=== PATIENT | male | born 1935 | race Caucasian/White ===

== ENCOUNTER 2017-12-31 17:13 | Emergency (ER) | payer MEDICARE, BC ==
[~2017-12-31] VITALS: Ht 170.2 cm; Wt 81.0 kg
[~2017-12-31 17:13] MED LIST: ACAR100T2 PO; ASPI-611 PO; ATOR10TA87 PO; CARV3.122 PO; DEC4T PO; ESOM40CA PO; GLIM4TAB79 PO; GLUC1CAP69 PO; LENA10CA PO; MAGN500C17 PO; METF1000 PO; NITR0.4T51 SL; PIOG15TA8 PO; SACU1TAB7 PO
[2017-12-31 17:57] LABS: BASOPHILS % (AUTO) 0.4 % (0-1); EOSINOPHILS # (AUTO) 0.1 X10'3 (0-0.9); EOSINOPHILS % (AUTO) 3.6 % (0-6); HEMATOCRIT 32.1 % (42.0-52.0); HEMOGLOBIN 10.7 g/dl (14.0-17.9); LYMPHOCYTES # (AUTO) 0.6 X10'3 (1.1-4.8); LYMPHOCYTES % (AUTO) 23.3 % (21-51); MEAN CORPUSCULAR HEMOGLOBIN 31.5 PG (27.0-31.0); MEAN CORPUSCULAR HGB CONC 33.2 % (33.0-36.5); MEAN CORPUSCULAR VOLUME 94.8 FL (78-98); MONOCYTES # (AUTO) 0.3 X10'3 (0-0.9); MONOCYTES % (AUTO) 13.7 % (2-12); NEUTROPHILS # (AUTO) 1.5 X10'3 (1.8-7.7); PLATELET COUNT 144 X10'3 (140-440); RED BLOOD COUNT 3.38 X10'6 (4.70-6.10); RED CELL DISTRIBUTION WIDTH 16.9 % (11.5-14.5); WHITE BLOOD COUNT 2.5 X10'3 (4.5-11.0)
[2017-12-31 18:11] LABS: ALANINE AMINOTRANSFERASE 19 U/L (12-78); ALBUMIN 3.1 G/DL (3.4-5.0); ALBUMIN/GLOBULIN RATIO 0.9 (1.1-1.5); ALKALINE PHOSPHATASE 66 IU/L (46-116); ANION GAP 10 (8-16); ASPARTATE AMINO TRANSFERASE 14 U/L (10-37); BILIRUBIN,TOTAL 0.4 MG/DL (0.1-1.0); BLOOD UREA NITROGEN 26 MG/DL (7-18); BUN/CREATININE RATIO 14.4 (5.4-32.0); CALCIUM 8.1 MG/DL (8.5-10.1); CHLORIDE 105 MMOL/L (99-107); GLUCOSE 126 MG/DL (70-104); POTASSIUM 4.1 MMOL/L (3.5-5.1); SODIUM 141 MMOL/L (135-145); TOTAL CARBON DIOXIDE 26.5 MMOL/L (24-32); TOTAL PROTEIN 6.4 G/DL (6.4-8.2); eGFR 36 ML/MIN
[2017-12-31 18:13] LABS: ANISOCYTOSIS 1+; PLATELET ESTIMATE NORMAL; TOTAL CELLS COUNTED 50
[2017-12-31 18:55] VITALS: BP 126/59
== END 2017-12-31 19:05 | disposition home or self-care (01) ==
LOC: ER 17:14
DX: R00.2 Palpitations (principal); R60.0 Localized edema; Z95.5 Presence of coronary angioplasty implant and graft; Z95.1 Presence of aortocoronary bypass graft; Z95.0 Presence of cardiac pacemaker; Z79.899 Other long term (current) drug therapy; Z79.82 Long term (current) use of aspirin
CPT/HCPCS: 36415; 71045; 80053; 83735; 84484; 85025; 93005; 99285

== ENCOUNTER 2018-01-30 16:05 | Inpatient (IN) | payer MEDICARE, BC ==
[~2018-01-30] VITALS: Ht 170.2 cm; Wt 75.2 kg
[2018-01-30] MEDS ORDERED: normal saline 1000ML IV soln IV ONE (16:50)
[2018-01-30] MEDS ORDERED: levoFLOXACIN-Levaquin 750MG/D5 150 ML IV ONE (17:30)
[2018-01-30 17:39] LABS: BASOPHILS % (AUTO) 0.1 % (0-1); EOSINOPHILS % (AUTO) 1.1 % (0-6); HEMATOCRIT 33.6 % (42.0-52.0); HEMOGLOBIN 11.1 g/dl (14.0-17.9); LYMPHOCYTES # (AUTO) 0.1 X10'3 (1.1-4.8); LYMPHOCYTES % (AUTO) 3.9 % (21-51); MEAN CORPUSCULAR HEMOGLOBIN 31.4 PG (27.0-31.0); MEAN CORPUSCULAR HGB CONC 33.1 % (33.0-36.5); MEAN CORPUSCULAR VOLUME 94.7 FL (78-98); MEAN PLATELET VOLUME 9.5 FL (7.4-10.4); MONOCYTES # (AUTO) 0.1 X10'3 (0-0.9); MONOCYTES % (AUTO) 2.1 % (2-12); NEUTROPHILS # (AUTO) 3.5 X10'3 (1.8-7.7); NEUTROPHILS % (AUTO) 92.8 % (42-75); PLATELET COUNT 135 X10'3 (140-440); RED BLOOD COUNT 3.54 X10'6 (4.70-6.10); RED CELL DISTRIBUTION WIDTH 16.5 % (11.5-14.5); WHITE BLOOD COUNT 3.7 X10'3 (4.5-11.0)
[2018-01-30 18:07] LABS: ALANINE AMINOTRANSFERASE 21 U/L (12-78); ALBUMIN 3.3 G/DL (3.4-5.0); ALKALINE PHOSPHATASE 66 IU/L (46-116); ANION GAP 10 (8-16); ASPARTATE AMINO TRANSFERASE 18 U/L (10-37); BILIRUBIN,TOTAL 1.1 MG/DL (0.1-1.0); BLOOD UREA NITROGEN 29 MG/DL (7-18); BUN/CREATININE RATIO 17.3 (5.4-32.0); CALCIUM 8.7 MG/DL (8.5-10.1); CHLORIDE 103 MMOL/L (99-107); CREATININE 1.68 MG/DL (0.60-1.10); GLUCOSE 150 MG/DL (70-104); INR 1.2 INR; MAGNESIUM 2.2 MG/DL (1.5-2.4); PARTIAL THROMBOPLASTIN TIME 23 SECONDS (22-32); PROTHROMBIN TIME 11.6 SECONDS (9.0-12.0); SODIUM 140 MMOL/L (135-145); TOTAL CARBON DIOXIDE 27.5 MMOL/L (24-32); TOTAL PROTEIN 6.7 G/DL (6.4-8.2); eGFR 39 ML/MIN
[2018-01-30 18:23] LABS: CLARITY,URINE SLIGHTLY CLOUDY (Clear); GLUCOSE, URINE NEGATIVE (Neg); KETONES,URINE 15 mg/dl (Neg); LEUKOCYTE ESTERASE ,URINE NEGATIVE (Neg); NITRITES, URINE NEGATIVE (Neg); OCCULT BLOOD,URINE NEGATIVE (Neg); PROTEIN,URINE 30 mg/dl (Neg); UROBILINOGEN,URINE 0.2 E.U/dL (0.2-1.0)
[2018-01-30 18:34] LABS: UA COLLECTION TYPE CLN CATCH MIDSTREAM
[2018-01-30 18:35] LABS: COLOR,URINE DARK YELLOW (Yellow)
[2018-01-30 18:36] LABS: BACTERIA,URINE NONE SEEN /HPF (Neg); RBC,URINE 0-2 /HPF (0-2); SQUAMOUS EPITHELIAL CELL,UR NONE SEEN /LPF (FEW); WBC,URINE 0-4 /HPF (0-4)
[2018-01-30 18:37] LABS: HYALINE CASTS 0-3 /LPF (NEGATIVE)
[2018-01-30] MEDS ORDERED: METF500T PO (20:33)
[2018-01-30] MEDS ORDERED: ZINC50TA60 PO (20:33)
[2018-01-30] MEDS ORDERED: ESOM40CA PO (20:33)
[2018-01-30] MEDS ORDERED: LENA5CAP PO (20:33)
[2018-01-30] MEDS ORDERED: SACU1TAB7 PO (20:33)
[2018-01-30] MEDS ORDERED: ATOR10TA87 PO (20:33)
[2018-01-30] MEDS ORDERED: ACAR100T2 PO (20:33)
[2018-01-30] MEDS ORDERED: GLIM4TAB79 PO (20:33)
[2018-01-30] MEDS ORDERED: PIOG15TA8 PO (20:33)
[2018-01-30] MEDS ORDERED: FURO-150 PO (20:33)
[2018-01-30] MEDS ORDERED: BACL10TA PO (20:33)
[2018-01-30] MEDS ORDERED: temazepam 15mg capsule PO PRN (21:00)
[2018-01-30] MEDS ORDERED: mag hydrox/Alum hydrox/simeth 30ml oral suspension PO PRN (21:25)
[2018-01-30] MEDS ORDERED: metoclopramide 5 mg/ml inj IV PRN (21:25)
[2018-01-30] MEDS ORDERED: HYDROmorphone 1 mg/ml syringe IV PRN (21:25)
[2018-01-30] MEDS ORDERED: acetaminophen 325mg tablet PO PRN ×2 (21:25)
[2018-01-30] MEDS ORDERED: magnesium hydroxide 30ml (MOM) UD suspension PO PRN (21:25)
[2018-01-30] MEDS ORDERED: morphine 2 MG/ML inj. syringe IV PRN (21:25)
[2018-01-30] MEDS ORDERED: ondansetron/PF 4mg/2ml inj IV PRN (21:25)
[2018-01-30] MEDS ORDERED: diphenhydrAMINE 25mg capsule PO PRN (21:25)
[2018-01-30] MEDS ORDERED: diphenhydrAMINE 50 mg/ml inj IV PRN (21:25)
[2018-01-30] MEDS ORDERED: bisacodyl 10mg suppository rectal RC PRN (21:25)
[2018-01-30] MEDS ORDERED: acetaminophen 650mg rectal suppository RC PRN (21:25)
[2018-01-30] MEDS ORDERED: HYDROcodone/acetaminophen 5mg/325mg tablet PO PRN (21:25)
[2018-01-30] MEDS ORDERED: MESSAGE TO PHARMACY PO ONE (21:30)
[2018-01-30] MEDS ORDERED: insulin Lispro (HumaLOG) vial - multi-dose SQ SCH (21:30)
[2018-01-30] MEDS ORDERED: glucagon, human recombinant 1mg kit SUBCUT PRN (21:30)
[2018-01-30] MEDS ORDERED: dextrose 50%-water 50ml dispensing syringe IV PRN ×2 (21:30)
[2018-01-30] MEDS ORDERED: dextrose ORAL solution 15 GM/59 ML bottle PO PRN ×2 (21:30)
[2018-01-30 22:03] LABS: HEMOGLOBIN A1C 6.5 % (4.5-6.2)
[2018-01-30 22:15] VITALS: BP 104/52
[2018-01-30 22:15] LABS: MAGNESIUM 2.2 MG/DL (1.5-2.4); PHOSPHORUS 1.9 MG/DL (2.3-4.5)
[2018-01-30] MEDS: normal saline 1000ml 1,000 ML IV SCH (23:49)
[2018-01-31] MEDS ORDERED: normal saline 500ml IV soln 500 ML IV ONE (00:35)
[2018-01-31 06:00] VITALS: BP 103/50
[2018-01-31 06:06] LABS: BASOPHILS % (AUTO) 0.3 % (0-1); EOSINOPHILS # (AUTO) 0.1 X10'3 (0-0.9); HEMOGLOBIN 9.2 g/dl (14.0-17.9); LYMPHOCYTES # (AUTO) 0.4 X10'3 (1.1-4.8); LYMPHOCYTES % (AUTO) 9.9 % (21-51); MEAN CORPUSCULAR HEMOGLOBIN 31.1 PG (27.0-31.0); MEAN CORPUSCULAR HGB CONC 32.7 % (33.0-36.5); MEAN CORPUSCULAR VOLUME 95.1 FL (78-98); MEAN PLATELET VOLUME 9.5 FL (7.4-10.4); MONOCYTES # (AUTO) 0.2 X10'3 (0-0.9); MONOCYTES % (AUTO) 5.8 % (2-12); NEUTROPHILS # (AUTO) 2.9 X10'3 (1.8-7.7); PLATELET COUNT 104 X10'3 (140-440); RED BLOOD COUNT 2.95 X10'6 (4.70-6.10); RED CELL DISTRIBUTION WIDTH 16.7 % (11.5-14.5); WHITE BLOOD COUNT 3.6 X10'3 (4.5-11.0)
[2018-01-31 06:14] LABS: ALANINE AMINOTRANSFERASE 19 U/L (12-78); ALBUMIN 2.6 G/DL (3.4-5.0); ALBUMIN/GLOBULIN RATIO 0.9 (1.1-1.5); ALKALINE PHOSPHATASE 50 IU/L (46-116); ANION GAP 9 (8-16); ASPARTATE AMINO TRANSFERASE 17 U/L (10-37); BILIRUBIN,TOTAL 0.6 MG/DL (0.1-1.0); BLOOD UREA NITROGEN 31 MG/DL (7-18); BUN/CREATININE RATIO 17.9 (5.4-32.0); CALCIUM 7.8 MG/DL (8.5-10.1); CHLORIDE 107 MMOL/L (99-107); CREATININE 1.73 MG/DL (0.60-1.10); GLUCOSE 98 MG/DL (70-104); POTASSIUM 4.1 MMOL/L (3.5-5.1); SODIUM 141 MMOL/L (135-145); TOTAL CARBON DIOXIDE 25.3 MMOL/L (24-32); TOTAL PROTEIN 5.6 G/DL (6.4-8.2); eGFR 38 ML/MIN
[2018-01-31] MEDS: sacubitril/valsartan 49mg-51mg tablet PO SCH ×2 (08:00→22:16)
[2018-01-31] MEDS ORDERED: azithromycin/NS 500mg/250ml 250 ML IV SCH (08:00)
[2018-01-31] MEDS ORDERED: CefTRIAXone/D5W-Rocephin 1gm 50 ML IV SCH (08:00)
[2018-01-31] MEDS: heparin, porcine 5000 units/ml vial SQ SCH ×2 (08:00→20:00)
[2018-01-31] MEDS: atorvastatin 10mg tablet PO SCH (08:00)
[2018-01-31] MEDS ORDERED: docusate sod 100mg capsule PO SCH (08:00)
[2018-01-31] MEDS: normal saline 1000ml 1,000 ML IV SCH ×2 (08:12→12:25)
[2018-01-31] MEDS: pantoprazole 40mg Tablet.DR PO SCH ×2 (08:12→18:00)
[2018-01-31] MEDS: baclofen 10mg tablet PO SCH ×2 (08:13→21:13)
[2018-01-31] MEDS: carVEDilol 3.125mg tablet PO SCH ×2 (08:13→21:13)
[2018-01-31] MEDS: aspirin 81mg tab.chew PO SCH (08:13)
[2018-01-31] MEDS: LENALIDOMIDE 5 MG PO SCH (09:23)
[2018-01-31 10:00] VITALS: BP 110/58
[2018-01-31] MEDS: levoFLOXACIN-Levaquin 250mg/D5 50 ML IV SCH (15:38)
[2018-01-31] MEDS: vancomycin/NS 1 GM ADD-VANTAGE 250 ML IV SCH (16:55)
[2018-01-31 19:00] VITALS: BP 103/49
[2018-01-31 22:00] VITALS: BP 116/55
[2018-02-01] MEDS: normal saline 1000ml 1,000 ML IV SCH (02:43)
[2018-02-01 06:00] VITALS: BP 135/71
[2018-02-01 07:11] LABS: BASOPHILS % (AUTO) 0.3 % (0-1); EOSINOPHILS # (AUTO) 0.1 X10'3 (0-0.9); EOSINOPHILS % (AUTO) 2.1 % (0-6); HEMATOCRIT 30.5 % (42.0-52.0); HEMOGLOBIN 10.2 g/dl (14.0-17.9); LYMPHOCYTES # (AUTO) 0.5 X10'3 (1.1-4.8); LYMPHOCYTES % (AUTO) 10.9 % (21-51); MEAN CORPUSCULAR HEMOGLOBIN 31.7 PG (27.0-31.0); MEAN CORPUSCULAR HGB CONC 33.3 % (33.0-36.5); MEAN CORPUSCULAR VOLUME 95.2 FL (78-98); MEAN PLATELET VOLUME 9.5 FL (7.4-10.4); MONOCYTES # (AUTO) 0.2 X10'3 (0-0.9); MONOCYTES % (AUTO) 4.2 % (2-12); NEUTROPHILS # (AUTO) 3.6 X10'3 (1.8-7.7); NEUTROPHILS % (AUTO) 82.5 % (42-75); PLATELET COUNT 120 X10'3 (140-440); RED BLOOD COUNT 3.21 X10'6 (4.70-6.10); WHITE BLOOD COUNT 4.3 X10'3 (4.5-11.0)
[2018-02-01] MEDS: atorvastatin 10mg tablet PO SCH (07:18)
[2018-02-01] MEDS: baclofen 10mg tablet PO SCH ×2 (07:18→19:43)
[2018-02-01] MEDS: carVEDilol 3.125mg tablet PO SCH ×2 (07:18→19:43)
[2018-02-01] MEDS: aspirin 81mg tab.chew PO SCH (07:19)
[2018-02-01] MEDS: pantoprazole 40mg Tablet.DR PO SCH ×2 (07:19→17:47)
[2018-02-01] MEDS: LENALIDOMIDE 5 MG PO SCH (07:20)
[2018-02-01] MEDS: sacubitril/valsartan 49mg-51mg tablet PO SCH ×2 (07:20→19:44)
[2018-02-01] MEDS: heparin, porcine 5000 units/ml vial SQ SCH ×2 (07:21→19:46)
[2018-02-01 07:55] LABS: ALANINE AMINOTRANSFERASE 20 U/L (12-78); ALBUMIN 2.7 G/DL (3.4-5.0); ALBUMIN/GLOBULIN RATIO 0.8 (1.1-1.5); ALKALINE PHOSPHATASE 55 IU/L (46-116); ASPARTATE AMINO TRANSFERASE 16 U/L (10-37); BILIRUBIN,TOTAL 0.7 MG/DL (0.1-1.0); BLOOD UREA NITROGEN 27 MG/DL (7-18); BUN/CREATININE RATIO 17.4 (5.4-32.0); CALCIUM 8.1 MG/DL (8.5-10.1); CREATININE 1.55 MG/DL (0.60-1.10); GLUCOSE 115 MG/DL (70-104); TOTAL CARBON DIOXIDE 24.1 MMOL/L (24-32); TOTAL PROTEIN 6.1 G/DL (6.4-8.2); eGFR 43 ML/MIN
[2018-02-01] MEDS ORDERED: CefTRIAXone/D5W-Rocephin 1gm 50 ML IV SCH (08:00)
[2018-02-01] MEDS: levoFLOXACIN-Levaquin 250mg/D5 50 ML IV SCH (09:22)
[2018-02-01 09:57] LABS: ANION GAP 14 (8-16); CHLORIDE 106 MMOL/L (99-107); POTASSIUM 4.1 MMOL/L (3.5-5.1); SODIUM 140 MMOL/L (135-145)
[2018-02-01 10:00] VITALS: BP 123/55
[2018-02-01] MEDS ORDERED: furosemide 40mg/4ml inj IV ONE (11:00)
[2018-02-01] MEDS: vancomycin/NS 1 GM ADD-VANTAGE 250 ML IV SCH (15:58)
[2018-02-01 18:00] VITALS: BP 127/69
[2018-02-01] MEDS: furosemide 40mg/4ml inj IV SCH (19:48)
[2018-02-01] MEDS ORDERED: heparin, porcine 5000 units/ml vial SQ SCH (20:20)
[2018-02-01] MEDS: piperacillin/tazo 3.375gm/50ml 50 ML IV SCH (21:13)
[2018-02-01 22:00] VITALS: BP 105/52
[2018-02-02] MEDS: piperacillin/tazo 3.375gm/50ml 50 ML IV SCH ×4 (02:21→20:03)
[2018-02-02 06:00] VITALS: BP 105/45
[2018-02-02 06:17] LABS: BASOPHILS % (AUTO) 0.3 % (0-1); EOSINOPHILS # (AUTO) 0.1 X10'3 (0-0.9); EOSINOPHILS % (AUTO) 4.7 % (0-6); HEMATOCRIT 30.7 % (42.0-52.0); HEMOGLOBIN 10.2 g/dl (14.0-17.9); LYMPHOCYTES # (AUTO) 0.6 X10'3 (1.1-4.8); LYMPHOCYTES % (AUTO) 17.6 % (21-51); MEAN CORPUSCULAR HEMOGLOBIN 31.4 PG (27.0-31.0); MEAN CORPUSCULAR HGB CONC 33.2 % (33.0-36.5); MEAN CORPUSCULAR VOLUME 94.7 FL (78-98); MEAN PLATELET VOLUME 9.9 FL (7.4-10.4); MONOCYTES # (AUTO) 0.2 X10'3 (0-0.9); MONOCYTES % (AUTO) 6.3 % (2-12); NEUTROPHILS # (AUTO) 2.2 X10'3 (1.8-7.7); NEUTROPHILS % (AUTO) 71.1 % (42-75); PLATELET COUNT 119 X10'3 (140-440); RED BLOOD COUNT 3.24 X10'6 (4.70-6.10); RED CELL DISTRIBUTION WIDTH 16.9 % (11.5-14.5); WHITE BLOOD COUNT 3.1 X10'3 (4.5-11.0)
[2018-02-02 07:14] LABS: ALANINE AMINOTRANSFERASE 18 U/L (12-78); ALBUMIN 2.7 G/DL (3.4-5.0); ALBUMIN/GLOBULIN RATIO 0.8 (1.1-1.5); ALKALINE PHOSPHATASE 65 IU/L (46-116); ANION GAP 12 (8-16); ASPARTATE AMINO TRANSFERASE 12 U/L (10-37); BLOOD UREA NITROGEN 23 MG/DL (7-18); CALCIUM 8.1 MG/DL (8.5-10.1); CHLORIDE 104 MMOL/L (99-107); CREATININE 1.77 MG/DL (0.60-1.10); GLUCOSE 115 MG/DL (70-104); MAGNESIUM 1.6 MG/DL (1.5-2.4); PHOSPHORUS 4.6 MG/DL (2.3-4.5); SODIUM 143 MMOL/L (135-145); TOTAL CARBON DIOXIDE 27.1 MMOL/L (24-32); TOTAL PROTEIN 6.1 G/DL (6.4-8.2); eGFR 37 ML/MIN
[2018-02-02] MEDS: furosemide 40mg/4ml inj IV SCH (07:24)
[2018-02-02] MEDS: heparin, porcine 5000 units/ml vial SQ SCH ×2 (07:25→20:05)
[2018-02-02] MEDS: levoFLOXACIN-Levaquin 250mg/D5 50 ML IV SCH (07:25)
[2018-02-02] MEDS: aspirin 81mg tab.chew PO SCH (07:25)
[2018-02-02] MEDS: atorvastatin 10mg tablet PO SCH (07:25)
[2018-02-02] MEDS: LENALIDOMIDE 5 MG PO SCH (07:25)
[2018-02-02] MEDS: pantoprazole 40mg Tablet.DR PO SCH ×2 (07:26→17:39)
[2018-02-02] MEDS: sacubitril/valsartan 49mg-51mg tablet PO SCH ×2 (07:26→20:03)
[2018-02-02] MEDS: carVEDilol 3.125mg tablet PO SCH ×2 (07:26→20:03)
[2018-02-02] MEDS: baclofen 10mg tablet PO SCH ×2 (07:26→20:03)
[2018-02-02 07:28] LABS: POTASSIUM 2.9 MMOL/L (3.5-5.1)
[2018-02-02] MEDS ORDERED: magnesium 4gm in 100ml NS 100 ML IV PRN (07:50)
[2018-02-02] MEDS ORDERED: magnesium 1gm/100ml D5W IVPB 100 ML IV PRN (07:50)
[2018-02-02] MEDS ORDERED: magnesium Cl slow-release 64mg tablet PO PRN (07:50)
[2018-02-02] MEDS ORDERED: potassium Cl 40MEQ/NS 500ml 500 ML IV PRN (07:50)
[2018-02-02] MEDS ORDERED: potassium Cl 20 mEq SR tablet PO PRN (07:50)
[2018-02-02] MEDS: potassium Cl 40MEQ/NS 500ml 500 ML IV PRN ×2 (09:52→14:29)
[2018-02-02 10:00] VITALS: BP 99/47
[2018-02-02] MEDS: vancomycin/NS 1 GM ADD-VANTAGE 250 ML IV SCH (16:26)
[2018-02-02 18:00] VITALS: BP 96/63
[2018-02-02] MEDS: potassium Cl 20 mEq SR tablet PO PRN (21:33)
[2018-02-02 22:00] VITALS: BP 104/58
[2018-02-03] MEDS: potassium Cl 20 mEq SR tablet PO PRN (01:34)
[2018-02-03] MEDS: piperacillin/tazo 3.375gm/50ml 50 ML IV SCH ×2 (01:34→09:18)
[2018-02-03 06:00] VITALS: BP 123/70
[2018-02-03 06:56] LABS: BASOPHILS % (AUTO) 0.5 % (0-1); EOSINOPHILS # (AUTO) 0.2 X10'3 (0-0.9); EOSINOPHILS % (AUTO) 5.5 % (0-6); HEMATOCRIT 32.2 % (42.0-52.0); HEMOGLOBIN 10.7 g/dl (14.0-17.9); LYMPHOCYTES # (AUTO) 0.5 X10'3 (1.1-4.8); LYMPHOCYTES % (AUTO) 16.3 % (21-51); MEAN CORPUSCULAR HEMOGLOBIN 31.1 PG (27.0-31.0); MEAN CORPUSCULAR HGB CONC 33.1 % (33.0-36.5); MEAN CORPUSCULAR VOLUME 93.9 FL (78-98); MEAN PLATELET VOLUME 9.9 FL (7.4-10.4); MONOCYTES # (AUTO) 0.3 X10'3 (0-0.9); MONOCYTES % (AUTO) 8.7 % (2-12); NEUTROPHILS # (AUTO) 2.2 X10'3 (1.8-7.7); PLATELET COUNT 135 X10'3 (140-440); RED BLOOD COUNT 3.43 X10'6 (4.70-6.10); RED CELL DISTRIBUTION WIDTH 16.8 % (11.5-14.5); WHITE BLOOD COUNT 3.2 X10'3 (4.5-11.0)
[2018-02-03 07:41] LABS: ALANINE AMINOTRANSFERASE 19 U/L (12-78); ALBUMIN 2.8 G/DL (3.4-5.0); ALBUMIN/GLOBULIN RATIO 0.8 (1.1-1.5); ALKALINE PHOSPHATASE 60 IU/L (46-116); ANION GAP 11 (8-16); ASPARTATE AMINO TRANSFERASE 12 U/L (10-37); BLOOD UREA NITROGEN 18 MG/DL (7-18); BUN/CREATININE RATIO 9.3 (5.4-32.0); CALCIUM 8.1 MG/DL (8.5-10.1); CHLORIDE 106 MMOL/L (99-107); CREATININE 1.94 MG/DL (0.60-1.10); GLUCOSE 125 MG/DL (70-104); MAGNESIUM 1.5 MG/DL (1.5-2.4); POTASSIUM 3.6 MMOL/L (3.5-5.1); SODIUM 144 MMOL/L (135-145); TOTAL CARBON DIOXIDE 27.2 MMOL/L (24-32); TOTAL PROTEIN 6.4 G/DL (6.4-8.2); eGFR 33 ML/MIN
[2018-02-03] MEDS ORDERED: furosemide 20MG tablet PO SCH (08:00)
[2018-02-03] MEDS: pantoprazole 40mg Tablet.DR PO SCH (08:15)
[2018-02-03] MEDS: carVEDilol 3.125mg tablet PO SCH (08:16)
[2018-02-03] MEDS: levoFLOXACIN-Levaquin 250mg/D5 50 ML IV SCH (08:16)
[2018-02-03] MEDS: LENALIDOMIDE 5 MG PO SCH (08:17)
[2018-02-03] MEDS: baclofen 10mg tablet PO SCH (08:17)
[2018-02-03] MEDS: atorvastatin 10mg tablet PO SCH (08:17)
[2018-02-03] MEDS: sacubitril/valsartan 49mg-51mg tablet PO SCH (08:18)
[2018-02-03] MEDS: aspirin 81mg tab.chew PO SCH (08:20)
[2018-02-03] MEDS: heparin, porcine 5000 units/ml vial SQ SCH (08:20)
[2018-02-03 10:00] VITALS: BP 113/72
[2018-02-03] MEDS ORDERED: LEVO500T89 PO (10:22)
[2018-02-03] MEDS ORDERED: AMOX-419 PO (10:22)
[2018-02-03] MEDS ORDERED: VANCOMYCIN LEVEL IV NR (15:30)
== END 2018-02-03 12:50 | disposition home health service (06) | DRG 871 ==
LOC: ER 16:06 → ED HOLD 21:25 → EDBEDREQ 21:36 → ORTHO 4S 21:56
PROVIDERS: ADMIT Family Medicine; ATTEND Family Medicine
DX: A41.9 Sepsis, unspecified organism (principal); J69.0 Pneumonitis due to inhalation of food and vomit; N17.9 Acute kidney failure, unspecified; D61.818 Other pancytopenia; I42.9 Cardiomyopathy, unspecified; C90.00 Multiple myeloma not having achieved remission; E87.6 Hypokalemia; I50.9 Heart failure, unspecified; E86.1 Hypovolemia; I25.10 Atherosclerotic heart disease of native coronary artery without angina pectoris; E11.22 Type 2 diabetes mellitus with diabetic chronic kidney disease; N18.9 Chronic kidney disease, unspecified; E11.65 Type 2 diabetes mellitus with hyperglycemia; R09.02 Hypoxemia; Z66 Do not resuscitate; Z95.5 Presence of coronary angioplasty implant and graft; Z79.84 Long term (current) use of oral hypoglycemic drugs; Z79.899 Other long term (current) drug therapy; Z79.82 Long term (current) use of aspirin
CPT/HCPCS: 36415; 71045; 80053; 81001; 82948; 83036; 83605; 83735; 83880; 84100; 84132; 84145; 85025; 85610; 85730; 87040; 87070; 87502; 87503; 93005; 93306; 94760; 96365; 97116; 97161; 99285; G0378; J0456; J0696; J1644; J1940; J1956; J2543; J3370; J3480; J7030

== ENCOUNTER 2018-05-10 00:17 | Inpatient (IN) | payer MEDICARE, BC | END 2018-05-11 15:50 | disposition home or self-care (01) | LOC: ER 00:17 → ED HOLD 02:12 → PCU 3S 07:20 | DX: I50.23 Acute on chronic systolic (congestive) heart failure (principal); J96.01 Acute respiratory failure with hypoxia; C90.00 Multiple myeloma not having achieved remission; E11.8 Type 2 diabetes mellitus with unspecified complications ==

== ENCOUNTER 2018-06-22 08:55 | Emergency (ER) | payer MEDICARE, BC ==
[~2018-06-22] VITALS: Ht 170.2 cm; Wt 60.0 kg
[~2018-06-22 08:55] MED LIST changes: +ALBU8.5H8 INH; +BACL10TA PO; -DEC4T PO; +FURO-150 PO; -GLUC1CAP69 PO; -LENA10CA PO; +LENA5CAP PO; -MAGN500C17 PO; -METF1000 PO; +METF500T PO; +ROBDML PO; +ZINC50TA60 PO
[2018-06-22] MEDS ORDERED: normal saline 1000ML IV soln IVB ONE (09:25)
[2018-06-22 09:29] LABS: BASOPHILS # (AUTO) 0.1 X10'3 (0-0.2); BASOPHILS % (AUTO) 2.7 % (0-1); EOSINOPHILS # (AUTO) 0.1 X10'3 (0-0.9); EOSINOPHILS % (AUTO) 1.4 % (0-6); HEMATOCRIT 40.7 % (42.0-52.0); HEMOGLOBIN 13.4 g/dl (14.0-17.9); LYMPHOCYTES # (AUTO) 0.4 X10'3 (1.1-4.8); LYMPHOCYTES % (AUTO) 11.1 % (21-51); MEAN CORPUSCULAR HEMOGLOBIN 30.9 PG (27.0-31.0); MEAN CORPUSCULAR HGB CONC 32.9 g/dL (33.0-36.5); MEAN CORPUSCULAR VOLUME 93.8 FL (78-98); MEAN PLATELET VOLUME 9.9 FL (7.4-10.4); MONOCYTES # (AUTO) 0.2 X10'3 (0-0.9); NEUTROPHILS # (AUTO) 2.9 X10'3 (1.8-7.7); NEUTROPHILS % (AUTO) 79.8 % (42-75); PLATELET COUNT 129 X10'3 (140-440); RED BLOOD COUNT 4.34 X10'6 (4.70-6.10); RED CELL DISTRIBUTION WIDTH 19.1 % (11.5-14.5); WHITE BLOOD COUNT 3.7 X10'3 (4.5-11.0)
[2018-06-22 09:34] LABS: INR 1.1 INR; PROTHROMBIN TIME 11.5 SECONDS (9.0-12.0)
[2018-06-22 09:37] LABS: ALANINE AMINOTRANSFERASE 53 U/L (12-78); ALBUMIN/GLOBULIN RATIO 1.1 (1.1-1.5); ALKALINE PHOSPHATASE 113 IU/L (46-116); ANION GAP 8 (8-16); ASPARTATE AMINO TRANSFERASE 35 U/L (10-37); BILIRUBIN,TOTAL 1.6 MG/DL (0.1-1.0); BLOOD UREA NITROGEN 39 MG/DL (7-18); BUN/CREATININE RATIO 24.1 (5.4-32.0); CALCIUM 9.3 MG/DL (8.5-10.1); CHLORIDE 102 MMOL/L (99-107); CREATININE 1.62 MG/DL (0.60-1.10); GLUCOSE 142 MG/DL (70-104); POTASSIUM 4.3 MMOL/L (3.5-5.1); SODIUM 139 MMOL/L (135-145); TOTAL CARBON DIOXIDE 28.8 MMOL/L (24-32); TOTAL PROTEIN 7.7 G/DL (6.4-8.2); eGFR 41 ML/MIN
[2018-06-22 09:50] LABS: CLARITY,URINE CLEAR (Clear); COLOR,URINE YELLOW (Yellow); GLUCOSE, URINE NEGATIVE (Neg); KETONES,URINE 15 mg/dl (Neg); LEUKOCYTE ESTERASE ,URINE NEGATIVE (Neg); NITRITES, URINE NEGATIVE (Neg); OCCULT BLOOD,URINE MODERATE (Neg); PROTEIN,URINE 100 mg/dl (Neg); UA COLLECTION TYPE CLN CATCH MIDSTREAM; UROBILINOGEN,URINE 0.2 E.U/dL (0.2-1.0)
[2018-06-22 09:59] LABS: SQUAMOUS EPITHELIAL CELL,UR FEW /LPF (FEW)
[2018-06-22 10:00] LABS: BACTERIA,URINE FEW /HPF (Neg); RBC,URINE 0-2 /HPF (0-2); WBC,URINE 0-4 /HPF (0-4)
[2018-06-22 10:37] LABS: ANISOCYTOSIS 2+; PLATELET ESTIMATE DECREASED
[2018-06-22] MEDS ORDERED: ONDA4TAB6 PO (10:49)
[2018-06-22 11:09] VITALS: BP 118/54
== END 2018-06-22 11:11 | disposition home or self-care (01) ==
LOC: ER 08:55
DX: K40.90 Unilateral inguinal hernia, without obstruction or gangrene, not specified as recurrent (principal); R10.31 Right lower quadrant pain; I49.9 Cardiac arrhythmia, unspecified; I11.0 Hypertensive heart disease with heart failure; I50.9 Heart failure, unspecified; E11.9 Type 2 diabetes mellitus without complications; Z98.61 Coronary angioplasty status; Z95.0 Presence of cardiac pacemaker; Z95.1 Presence of aortocoronary bypass graft; Z79.82 Long term (current) use of aspirin; Z79.899 Other long term (current) drug therapy; Z79.84 Long term (current) use of oral hypoglycemic drugs
CPT/HCPCS: 36415; 74176; 80053; 81001; 83605; 85025; 85610; 99284; J7030

== ENCOUNTER 2018-06-29 12:31 | Inpatient (IN) | payer MEDICARE, BC | END 2018-07-09 08:30 | disposition E | LOC: ORTHO 4S 07-05 09:46 → ER 12:31 → ORTHO 4S 07-05 12:20 → ICU 2S 17:48 | PROC: 5A1945Z Respiratory Ventilation, 24-96 Consecutive Hours (ICD-10-PCS; principal; ~2018-06-29) | DX: J96.00 Acute respiratory failure, unspecified whether with hypoxia or hypercapnia (principal); I63.9 Cerebral infarction, unspecified; C90.01 Multiple myeloma in remission; I50.22 Chronic systolic (congestive) heart failure; R57.9 Shock, unspecified; I69.351 Hemiplegia and hemiparesis following cerebral infarction affecting right dominant side ==